=== PATIENT | male | born 1955 | race Caucasian/White ===

== ENCOUNTER 2024-10-12 18:12 | Emergency (ER) | payer MEDICARE ==
[2024-10-12 18:47] LABS: BASOPHILS ABSOLUTE AUTO 0.02 K/uL (0.02-0.10); BASOPHILS PERCENT AUTO 0.1 % (0.0-0.5); EOSINOPHILS ABSOLUTE AUTO 0.02 K/uL (0.04-0.40); EOSINOPHILS PERCENT AUTO 0.1 % (1.0-5.0); LYMPHOCYTES ABSOLUTE AUTO 1.19 K/uL (1.50-4.00); LYMPHOCYTES PERCENT AUTO 6.9 % (20.0-40.0); MEAN PLATELET VOLUME 10.8 fL (6.0-10.0); MONOCYTES ABSOLUTE AUTO 0.76 K/uL (0.20-0.80); MONOCYTES PERCENT AUTO 4.4 % (3.0-10.0); NEUTROPHILS ABSOLUTE AUTO 15.37 K/uL (2.00-7.50); NEUTROPHILS PERCENT AUTO 88.5 % (45.0-70.0); PLATELET COUNT,PLT 249 K/uL (150-400); RED BLOOD CELL COUNT 4.36 M/uL (4.50-6.50); RED CELL DISTRIBUTION WIDTH 13.2 % (11.0-16.0); WHITE BLOOD CELL COUNT,WBC 17.4 K/uL (4.0-11.0)
[2024-10-12 18:51] LABS: BASE EXCESS VENOUS -5.2 mm/L (-2-3); BICARBONATE,VENOUS 21.3 mmol/L (23.0-28.0); PCO2 VENOUS 44.3 mm/Hg (41-51); PH,VENOUS 7.29 (7.31-7.41)
[2024-10-12 19:01] LABS: A/G RATIO 1.2 (0.8-2.0); ALANINE AMINOTRANSFERASE,ALT 54 U/L (12-78); ASPARTATE AMNIOTRANSFERASE,AST 86 U/L (15-37); BILIRUBIN TOTAL 1.3 mg/dL (0.0-1.0); BLOOD UREA NITROGEN,BUN 12 mg/dL (8-26); CARBON DIOXIDE,CO2 24.5 mmol/L (21.0-32.0); CHLORIDE,CL 98 mmol/L (98-107); CREATININE 2.24 mg/dL (0.70-1.30); ESTIMATED GFR 31 mL/min (>60); GLUCOSE RANDOM 253 mg/dL (74-100); POTASSIUM,K 3.2 mmol/L (3.5-5.1); PROTEIN TOTAL,TP 8.4 g/dL (6.4-8.2); SODIUM,NA 141 mmol/L (136-145)
[2024-10-12 19:04] LABS: INR 1.1 (1.0-3.5); PTT,PARTIAL THROMBOPLSTIN TIME 24.1 SECONDS (24.4-33.2)
[2024-10-12 19:11] LABS: TROPONIN I HIGH SENSITIVITY 204.2 pg/ml (<=60.4)
[2024-10-12] MEDS: Heparin Sodium 5,000 Units/ML Vial IVPUSH ONE (19:20)
[2024-10-12] MEDS ORDERED: Iopamidol 755 Mg/ML 100 ML Bottle IV SCH (19:45)
[2024-10-12] MEDS: Ondansetron 4 MG/2 ML SDV IVPUSH ONE (19:50)
[2024-10-12] MEDS: Sodium Chloride 0.9% 50 ML SDV FLUSH ONE (20:48)
[2024-10-12 22:03] LABS: APPEARANCE,URINE CLOUDY (CLEAR); GLUCOSE,URINE 100 mg/dL (NEGATIVE); OCCULT BLOOD,URINE TRACE-INTACT (NEGATIVE)
[2024-10-12 22:07] LABS: FINE GRANULAR CASTS,URINE OCCASIONAL /HPF; SQUAMOUS EPITHELIAL CELLS,UR OCCASIONAL /HPF
== END 2024-10-12 21:50 ==
LOC: LB.ED 18:12
DX: A41.9 Sepsis, unspecified organism (principal); R65.20 Severe sepsis without septic shock; N17.9 Acute kidney failure, unspecified; I21.4 Non-ST elevation (NSTEMI) myocardial infarction; R79.89 Other specified abnormal findings of blood chemistry; Z79.4 Long term (current) use of insulin; Z79.82 Long term (current) use of aspirin; Z79.899 Other long term (current) drug therapy
CPT/HCPCS: 36415; 71045; 80053; 81001; 82803; 83605; 83735; 84484; 85025; 85379; 85610; 85730; 87040; 96361; 96365; 96367; 96375; 96376; 99285-25; A0425; A0428; A9270-GY; J1644; J2405; J2543; J7030